=== PATIENT | female | born 1950 | race African-American/Black ===

== ENCOUNTER 2020-10-30 10:49 | Inpatient (IN) | payer OTHER ==
[~2020-10-30] VITALS: Ht 167.6 cm; Wt 50.0 kg
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
[2020-10-30 10:51] VITALS: BP 143/71
[2020-10-30 11:15] LABS: RBC 3.34 mil/uL (4.20-5.00); WBC 3.4 thou/uL (4.0-11.0)
[2020-10-30 11:17] LABS: HEMATOCRIT 29.5 % (37.0-47.0); HEMOGLOBIN 9.6 gm/dL (12.0-15.0); MCH 28.8 pg (26.0-34.0); MCHC 32.5 g/dL (28.0-37.0); MCV 88.4 fL (80.0-100.0); PLATELET COUNT 200 thou/uL (150-400); RDW 16.7 % (10.5-14.5)
[2020-10-30 11:25] LABS: CALCIUM 8.2 mg/dL (8.5-10.1); CREATININE 14.9 mg/dL (0.6-1.0); POTASSIUM 5.6 mmol/L (3.5-5.1)
[2020-10-30 11:31] LABS: ALBUMIN 3.3 g/dL (3.4-5.0); TOTAL BILIRUBIN 0.4 mg/dL (0.2-1.0); TOTAL PROTEIN 7.8 g/dL (6.4-8.2)
[2020-10-30 12:08] LABS: PLATELET ESTIMATE NORMAL
--- NOTE | 2020-10-30 12:30 | EKG ---
[place] [address] 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 : 1950 Requested By: Carla Olivia Order Number: [id number] MD: Kingsley Paiz Measurements Intervals [place] Rate: 45 P: 68 WA: 263 QRS: -67 QRSD: 128 T: QT: 578 QTc: 501 Interpretive Statements Sinus bradycardia Prolonged WA interval Nonspecific IVCD with LAD Left ventricular hypertrophy Anterior infarct, old Nonspecific T abnormalities, lateral leads No previous ECG available for comparison Electronically Signed On 10-30-2020 12:30:26 CDT by Kingsley Paiz [email or web address] <ELECTRONICALLY SIGNED> By: Kingsley Paiz MD, [facility] 10/30/20 1230 1054 1054 Kingsley Paiz MD, FACC /EPI
[2020-10-30 14:25] LABS: FOLIC ACID 59.3 ng/mL (8.6-58.9)
--- NOTE | 2020-10-30 14:34 | 2DMMODE ---
[facility] [place] [address] 2 D/M-MODE ECHOCARDIOGRAM Name: KHUSHBU CHRISTIANSEN Room #: 170-8 ADM IN M.R.#: [id number] Admission: 10/30/20 Attend Phys: Martha Mitchell MD Discharge: Date of : 52 Report #: [id number] THIS REPORT FOR: cc: Taylor Lr NP, Kristi NP Lammoglia, Francisco J. MD ~ APPROVED REPORT Study performed: 10/30/2020 13:45:53 EXAM: Comprehensive 2D, Doppler, and color-flow Echocardiogram Patient Location: ER Status: routine BSA: 1.52 HR: 43 bpm BP: 149/72 mmHg Rhythm: Bradycardia Other Information Study Quality: Excellent Indications CHF. Rule out pericardial effusion. Hx: AV replacement, ESRD, Afib, HTN, HD. 2D Dimensions RVDd: 45.51 mm IVSd: 13.24 (7-11mm) LVDd: 52.48 mm PWd: 12.51 (7-11mm) Ascending Ao: 36.15 (22-36mm) LVDs: 32.70 (25-40mm) Left Atrium: 44.81 (27-40mm) Aortic Root: 38.08 mm Volumes Left Atrial Volume (Systole) Single Plane 4CH: 86.68 mL Single Plane 2CH: 90.95 mL LA ESV Index: 68.00 mL/m2 Aortic Valve AoV Peak Chad.: 2.81 m/s AO Peak Gr.: 31.48 mmHg LVOT Max P.06 mmHg AO Mean Gr.: 14.83 mmHg [facility] [address] [place] [address] 2 D/M-MODE ECHOCARDIOGRAM Name: KHUSHBU CHRISTIANSEN Room #: 170-8 [facility] IN ..#: [id number] Admission: 10/30/20 Attend Phys: Martha Mitchell, Discharge: Date of : 52 Report #: [id number] AO V2 Mean: 1.82 m/s LVOT Max V: 1.42 m/s AO V2 VTI: 69.56 cm Mitral Valve E/A Ratio: 1.3 MV Decel. Time: 192.20 ms MV E Max Chad.: 1.46 m/s MV A Chad.: 1.15 m/s MV PHT: 55.74 ms IVRT: 64.59 ms Pulmonary Valve PV Peak Chad.: 1.26 m/s PV Peak Gr.: 6.32 mmHg Pulmonary Vein P Vein S: 0.36 m/s P Vein D: 0.24 m/s P Vein S/D Ratio: 1.50 Tricuspid Valve TR Peak Chad.: 3.78 m/s RAP Estimate: 15.00 mmHg TR Peak Gr.: 57.21 mmHg PA Pressure: 72.00 mmHg Left Ventricle The left ventricle is normal size. There is normal LV segmental wall motion. Mild concentric left ventricular hypertrophy. Left ventricular systolic function is normal. LVEF is 60-65%. Right Ventricle Right ventricle is mildly dilated. The right ventricular systolic function is normal. Atria Severe biatrial enlargement. Aortic Valve History of bioprosthetic aortic valve replacement (Peak pressure gradient of 31mmHg; mean of 15mmHg). Trace aortic regurgitation. Mitral Valve The mitral valve is normal in structure. Mildly thickened leaflets. Moderate to severe mitral regurgitation No evidence of mitral valve stenosis. [facility] [address] [place] [address] 2 D/M-MODE ECHOCARDIOGRAM Name: KHUSHBU CHRISTIANSEN Room #: 170-8 [facility] IN ..#: [id number] Admission: 10/30/20 Attend Phys: Martha Mitchell, Discharge: Date of : 52 Report #: [id number] Tricuspid Valve The tricuspid valve is normal in structure. Severe tricuspid regurgitation. Severe pulmonary hypertension. Estimated PAP is 70mmHg. Pulmonic Valve The pulmonary valve is normal in structure. Mild to moderate pulmonic regurgitation. Great Vessels Aortic root is upper limitsd of normal The ascending aorta is normal in size. IVC is dilated and collapses <50% with inspiration. Pericardium There is no pericardial effusion. <Conclusion> The left ventricle is normal size. Mild concentric left ventricular hypertrophy. LVEF is 60-65%. Right ventricle is mildly dilated. Severe biatrial enlargement. History of bioprosthetic aortic valve replacement (Peak pressure gradient of 31mmHg; mean of 15mmHg). Trace aortic regurgitation. The mitral valve is normal in structure. Mildly thickened leaflets. Moderate to severe mitral regurgitation The tricuspid valve is normal in structure. Severe tricuspid regurgitation. Severe pulmonary hypertension. Estimated PAP is 70mmHg. The pulmonary valve is normal in structure. Mild to moderate pulmonic regurgitation. Aortic root is upper limitsd of normal There is no pericardial effusion. <ELECTRONICALLY SIGNED> By: Braulio Malone MD 10/30/20 [phone] Braulio Malone MD /INF
[2020-10-30 18:40] VITALS: BP 160/71
--- NOTE | 2020-10-30 19:19 | NUR ---
ATTEMPTED TO CALL REPORT WAS NOTIFIED THAT RN ASSIGNED TO NURSE AND CHARGE ARE NOT AVAILABLE FOR REPORT BECAUSE THEY ARE IN REPORT RIGHT NOW. WILL CALL BACK.
--- NOTE | 2020-10-30 19:24 | NUR ---
ATTEMPTED TO CALL REPORT X2, NO ANSWER, PATIENT SENT TO FLOOR.
[2020-10-30 19:31] VITALS: BP 176/79
[2020-10-30 20:01] VITALS: BP 156/77
[2020-10-31 04:38] LABS: RDW 16.9 % (10.5-14.5); WBC 3.1 thou/uL (4.0-11.0)
[2020-10-31 04:40] LABS: HEMATOCRIT 24.8 % (37.0-47.0); HEMOGLOBIN 8.4 gm/dL (12.0-15.0); MCH 29.6 pg (26.0-34.0); MCHC 33.7 g/dL (28.0-37.0); MCV 87.9 fL (80.0-100.0); PLATELET COUNT 177 thou/uL (150-400); RBC 2.82 mil/uL (4.20-5.00)
[2020-10-31 04:44] VITALS: BP 140/72
[2020-10-31 04:50] LABS: CALCIUM 7.9 mg/dL (8.5-10.1); CREATININE 15.2 mg/dL (0.6-1.0); MAGNESIUM 2.4 mg/dL (1.8-2.4)
[2020-10-31 04:54] LABS: POTASSIUM 6.1 mmol/L (3.5-5.1)
[2020-10-31 07:34] LABS: ABSOLUTE NEUTROPHILS 1.4 thou/uL (1.4-8.2)
[2020-10-31 07:36] LABS: ANISOCYTOSIS 1+
[2020-10-31 08:52] LABS: INR 1.14; PROTIME 12.3 Seconds (10.5-12.1)
[2020-10-31 08:58] LABS: ALBUMIN 2.9 g/dL (3.4-5.0); CALCIUM 7.8 mg/dL (8.5-10.1); DIRECT BILIRUBIN 0.1 mg/dL (<0.1-0.2); TOTAL BILIRUBIN 0.4 mg/dL (0.2-1.0); TOTAL PROTEIN 6.9 g/dL (6.4-8.2)
[2020-10-31 09:01] LABS: CREATININE 11.8 mg/dL (0.6-1.0); POTASSIUM 4.8 mmol/L (3.5-5.1)
--- NOTE | 2020-10-31 09:10 | NUR ---
PATIENT ARRIVED TO ROOM 204 AROUND SHIFT CHANGE.NO REPORT WAS RECEIVED FROM ED RN.PATIENT COMPLAIN OF LEFT SHOULDER PAIN.TYLENOL GIVEN.PATIENT STATES FEELING WEAK AND NAUSEAOUS.ZOFRAN GIVEN.K LEVEL IS 6.1 THIS MORNING.PT IS DIALYSIS FRIDAY,FRIDAY,FRIDAY.[employer] STORAGE MANAGEMENT CONSULTANT WAS INFORMED ABOUT THE HIGH POTASSIUM AND SHE IS ALSO AWARE THAT NEPHROLOGY WAS CONSULTED AND IS DUE FOR DIALYSIS TODAY.MONITOR SHOWS SINUS THAIS.POC CONTINUED.
[2020-10-31 19:32] VITALS: BP 152/65
--- NOTE | 2020-10-31 20:27 | NUR ---
PT IS AXOX4, PLEASANT. VS 170s SBP, AFEBRILE, SB ON MONITOR. PT IS //SAT DIALYSIS PT. RECEIVED DIALYSIS IN THE AM. 3L PULLED OFF. PT HAD MRCP THIS PM. DR TOVAR CONSULTED, NEPHRO CONSULTED, GI CONSULTED. PT TO HAVE NUC MED PROCEDURE IN AM. PT CAME IN WITH LOOSE STOOLS; CDIFF RULE OUT SHOWS PT NEGATIVE FOR CDIFF. POC IS TO CONTINUE TO ASSESS PT FOR PAIN MGMT, AND STDBY ASST, PT HAS HX OF FALLS. FALL PRECAUTIONS IN PLACE.
[2020-11-01 04:36] VITALS: BP 153/67
[2020-11-01 07:53] VITALS: BP 151/58
[2020-11-01 10:08] LABS: HEP B SURFACE Ab(ANTI-HBS Reactive (()); HEPATITIS B SURFACE AG Negative (Negative)
[2020-11-01 11:20] VITALS: BP 163/77
--- NOTE | 2020-11-01 13:05 | NUR ---
ASSUMED CARE SHIFT CHANGE. NPO FOR PIPIDA SCAN- REFER TO RESULTS. PT UP SBA BERNADETTE WELL. C/O NAUSEA ZOFRAN GIVEN. CLR LIQ DIET ORDERED ADVANCE BERNADETTE PER PHYSICIAN ORDERS. PT UNHAPPY WITH DIET AND WANTS TO LEAVE AMA. OFFERED PT TO TRY SOLID FOOD TO SEE HOW NAUSEA WAS. PT DECLINED AND CONTINUED TO PACK HER THINGS TO LEAVE AMA. DR TOVAR NOTIFIED OF PT LEAVING AMA, NO ORDERS RECEIVED. PT ARRANGED A RIDE TO BE PICKED UP. PT DIRECTED ON HOW TO LEAVE THE UNIT. TELE REMOVED. IV REMOVED. PT LEFT WITH ALL BELONGINGS.
--- NOTE | 2020-11-07 09:14 | HC ---
[facility] [place] [address] CONSULTATION Name: KHUSHBU CHRISTIANSEN Room #: 204-P [facility] IN M.R.#: [id number] Admission: 10/30/20 Attend Phys: Martha Mitchell MD Discharge: 11/01/20 Date of : 52 Report #: [id number] THIS REPORT FOR: cc: Taylor Lr NP, Kristi NP Al-Absi, Ahmed I. MD ~ REASON FOR CONSULTATION: End-stage renal disease. REASON FOR THE PRESENTATION: Not feeling well, nausea, vomiting, diarrhea and missing dialysis. HISTORY OF PRESENT ILLNESS: A 69-year-old with past medical history of end-stage renal disease, maintained on hemodialysis. She is also known to have hypertension, aortic valve replacement, atrial fibrillation. She presented to the hospital reporting abdominal pain, nausea, vomiting, diarrhea. She also missed her dialysis on Friday. She is known to have end-stage renal disease and maintained on hemodialysis every Friday, , and Friday. She usually dialyzes with [facility]. She was found to have pulmonary edema. She tested negative for COVID-19. I was consulted to manage her end-stage renal disease. PAST MEDICAL HISTORY: 1. End-stage renal disease, maintained on hemodialysis. 2. Atrial fibrillation. 3. History of bioprosthetic valve. 4. Hypertension. 5. Noncompliance. CURRENT MEDICATIONS: 1. Pantoprazole. 2. Carvedilol. 3. Ceftriaxone. 4. Metronidazole. ALLERGIES: None. REVIEW OF SYSTEMS: GENERAL: Significant for weakness. CARDIOVASCULAR: Significant for shortness of breath. PULMONARY: Significant for dyspnea on exertion and shortness of breath. GI: As per the history of present illness. MUSCULOSKELETAL: Occasional general myalgias. SOCIAL HISTORY: She denies drug or alcohol abuse. FAMILY HISTORY: Significant for hypertension. [facility] [address] [place] [address] CONSULTATION Name: KHUSHBU CHRISTIANSEN Room #: 204-P DIS IN [facility].#: [id number] Admission: 10/30/20 Attend Phys: Martha Mitchell MD Discharge: 11/01/20 Date of : 52 Report #: [id number] PHYSICAL EXAMINATION: VITAL SIGNS: Blood pressure is 140/72, temperature is 36.4. HEAD AND NECK: Significant jugular venous distention. CHEST: Crackles bilaterally. CARDIOVASCULAR: No rub detected. ABDOMEN: Soft, nontender. LOWER EXTREMITIES: +1 edema. LABORATORY DATA: White blood cell count is 3.1. Sodium is 140, potassium 6.1, BUN 78, creatinine 15.2. Chest x-ray is consistent with pulmonary edema. ASSESSMENT, IMPRESSION AND PLAN: 1. End-stage renal disease. 2. Pulmonary edema. 3. Arrangement for dialysis will be done today. 4. Compliance counseling. 5. Cardiology following. 6. We will continue to follow. <ELECTRONICALLY SIGNED> By: Norma Peter MD 11/07/20 0914 0555 [id number] Norma Peter MD /clemente
== END 2020-11-01 13:15 | disposition left against medical advice (07) | DRG 291 ==
LOC: ER 10:49 → EROBS 14:21 → 2N 14:21
PROVIDERS: Emergency Medicine; Hospitalist; Nurse Practitioner; ADMIT Internal Medicine; ATTEND Internal Medicine
DX: I13.2 Hypertensive heart and chronic kidney disease with heart failure and with stage 5 chronic kidney disease, or end stage renal disease (principal); J96.01 Acute respiratory failure with hypoxia; N18.6 End stage renal disease; I50.33 Acute on chronic diastolic (congestive) heart failure; R18.8 Other ascites; E44.0 Moderate protein-calorie malnutrition; Z68.1 Body mass index [BMI] 19.9 or less, adult; R00.1 Bradycardia, unspecified; Z20.822 Contact with and (suspected) exposure to COVID-19; K81.9 Cholecystitis, unspecified; E87.5 Hyperkalemia; E87.70 Fluid overload, unspecified; K21.9 Gastro-esophageal reflux disease without esophagitis; I25.10 Atherosclerotic heart disease of native coronary artery without angina pectoris; J45.909 Unspecified asthma, uncomplicated; M10.9 Gout, unspecified; Z53.29 Procedure and treatment not carried out because of patient's decision for other reasons; J44.9 Chronic obstructive pulmonary disease, unspecified; I48.0 Paroxysmal atrial fibrillation; R53.81 Other malaise; K86.89 Other specified diseases of pancreas; I34.0 Nonrheumatic mitral (valve) insufficiency; D63.8 Anemia in other chronic diseases classified elsewhere; Z95.2 Presence of prosthetic heart valve; Z87.891 Personal history of nicotine dependence; Z91.15 Patient's noncompliance with renal dialysis; Z85.038 Personal history of other malignant neoplasm of large intestine
CPT/HCPCS: 10081; 32100